=== PATIENT | female | born 1940 | race Caucasian/White ===

== ENCOUNTER 2017-09-23 13:32 | Outpatient (CLI) | payer OTHER ==
--- NOTE | 2017-09-23 15:14 | DEXA ---
EXAM: Bone density HISTORY: Family history of osteoporosis and personal history of osteoporosis and diabetes with prior hysterectomy COMPARISON: Bone density 11/30/2013 TECHNIQUE: Digital images of the thoracolumbar spine and hips were provided and calculation of bone density was obtained. FINDINGS: Digital images demonstrate no compression deformities of the thoracolumbar spine. DEXA scan of the lumbar spine is of good quality. The total BMD equals 1.044 grams per square centimeter. (Prior 1.028) T-score is - 1.5 and Z-score of - 0.1. DEXA of the hips was performed and of good quality. Total bone marrow density of 0.808 grams per square centimeter. (Prior 0.834) T score is - 2.0 and Z-score of - 0.6. IMPRESSION: Bone density of the hip and lumbar spine demonstrate osteopenia of the hips and the lumb ar spine by WHO criteria. Overall bone density has improved in the lumbar spine and decreased in the hips. FRAX calculation tool demonstrates 10-year major osteoporotic fracture risk of 8.6% and hip fracture risk of 3.6% T score greater than -1 is normal T score -1 to -2.5 is osteopenia T score less than - 2.5 is osteoporosis
== END 2017-09-23 13:33 | disposition home or self-care (01) ==
LOC: RAD 13:32
PROVIDERS: ATTEND Family Medicine
DX: Z12.31 Encounter for screening mammogram for malignant neoplasm of breast (principal); M81.0 Age-related osteoporosis without current pathological fracture

== ENCOUNTER 2018-10-01 10:07 | Outpatient (CLI) ==
--- NOTE | 2018-10-02 09:48 | MAMMO ---
EXAM: Digital screening mammogram with 3-D tomosynthesis and CAD HISTORY: Screening mammogram COMPARISON: Mammogram 02/19/2016 and 09/23/2017 FINDINGS: Bilateral CC and MLO views of the breasts were performed digitally and demonstrate scatter ed fibroglandular breast density. There are bilateral breast calcifications present. There is a bio psy clip noted in the left breast. There is no abnormal nodule or calcification. There is no signif icant interval change. IMPRESSION: No new or suspicious nodule or calcification RECOMMENDATION: Annual screening mammogram BIRADS category II: Benign findings
== END 2018-10-01 10:08 | disposition home or self-care (01) ==
LOC: RAD 10:07
PROVIDERS: ATTEND Family Medicine
DX: Z12.31 Encounter for screening mammogram for malignant neoplasm of breast (principal)